=== PATIENT | female | born 1975 | race Caucasian/White ===

== ENCOUNTER 2019-02-20 02:42 | Inpatient (IN) ==
[2019-02-20] MEDS ORDERED: LR 1,000 ML ONE (11:14)
[2019-02-20] MEDS ORDERED: KEFZOL 1 GM/D5W 1 GM/50 ML IVPB ONE (11:14)
[2019-02-20] MEDS ORDERED: NEOSPORIN G.U. IRRIGANT ONE (11:28)
[2019-02-20] MEDS ORDERED: XYLOCAINE-MPF 2% ONE (11:52)
[2019-02-20] MEDS ORDERED: FENTANYL ONE (11:52)
[2019-02-20] MEDS ORDERED: DIPRIVAN 1% ONE (11:52)
[2019-02-20] MEDS ORDERED: VALIUM ONE (12:15)
[2019-02-20] MEDS ORDERED: ZOFRAN ONE (12:35)
[2019-02-20] MEDS ORDERED: DECADRON ONE (12:35)
[2019-02-20] MEDS: DILAUDID ONE ×2 (13:46→13:49)
[2019-02-20] MEDS: LR 1,000 ML ONE ×2 (14:19→15:14)
[2019-02-20] MEDS ORDERED: PERCOCET-5 PO PRN (14:30)
[2019-02-20] MEDS ORDERED: VANCOMYCIN IV PER PHARMACY MISC SCH (14:30)
[2019-02-20] MEDS: PERCOCET-5 PO PRN ×2 (15:11→22:32)
[2019-02-20] MEDS: LR 1,000 ML IV SCH (16:38)
[2019-02-20] MEDS ORDERED: VANCOMYCIN 1,600 MG in NS 250 ML IV ONE (20:00)
--- NOTE | 2019-02-20 20:40 | OPERATIVE NOTE ---
PROCEDURE DATE: 02/20/2019 PREOPERATIVE DIAGNOSIS: Left ankle infected hardware. POSTOPERATIVE DIAGNOSIS: Left ankle infected hardware. PROCEDURE: Removal of hardware of left ankle, and irrigation and debridement of wound. ANESTHESIA: General. SURGEON: Chris López MD. ATHLETIC TRAINER: MISTY Saucedo. COMPLICATIONS: None. BLOOD LOSS: Minimal. TOURNIQUET TIME: Approximately 1 hour. DRAIN: [place] x1. SPECIMEN/CULTURE: Cultures to Microbiology and Pathology with the tissue. DESCRIPTION OF PROCEDURE: Patient was brought to the operative suite and placed in a supine position. After satisfactory administration of general anesthesia, a well- padded tourniquet was placed on the left proximal thigh, and left lower extremity was prepped and draped in usual sterile fashion. Leg was exsanguinated, tourniquet insufflated to 350 torr. A longitudinal incision was made overlying the lateral malleolus, dissected sharply through the skin down to the plate. Cultures were obtained. Then, the screws were removed from the plate and the plate was removed. The interfragmentary screw was removed as well. The screw holes were curetted. The scar tissue was debrided with a rongeur and sharply. We also removed the thickened rind of tissue over the plate. Once this was accomplished, the wound and bone of the lateral malleolus was copiously irrigated with normal saline containing G.U. irrigant and Vashe irrigation. A [place] drain was then placed. The wound was closed with interrupted 3-0 nylon and a sterile dressing was applied. The patient tolerated the procedure without complication. At the end the procedure, all counts were correct. The patient was transferred to the recovery room in stable condition. cc: Chris López MD [facility]
[2019-02-20] MEDS: PERIDEX MT SCH (20:55)
[2019-02-20] MEDS: MORPHINE IV PRN (21:20)
[2019-02-21] MEDS: PERCOCET-5 PO PRN ×4 (02:49→18:39)
[2019-02-21] MEDS: MORPHINE IV PRN ×3 (06:53→16:41)
[2019-02-21] MEDS: VANCOMYCIN 1,200 MG in NS 250 ML IV SCH ×2 (08:04→21:06)
[2019-02-21] MEDS: NICODERM PATCH TD SCH (10:28)
--- NOTE | 2019-02-21 12:25 | ORTHOPAEDICS PROGRESS NOTE ---
DATE: 02/21/2019 SUBJECTIVE: Patient is a 43-year-old female who is 1 day status post removal of hardware left ankle and irrigation and debridement. She is currently resting comfortably. PHYSICAL EXAMINATION: The patient's dressing is intact. She has good capillary refill distally. She is grossly neurovascularly intact. Her cultures are pending. IMPRESSION: Postoperative day #1 status post removal of hardware left ankle and irrigation and debridement of wound. PLAN: At this point, will await the culture results. Dr. Oconnor has been consulted for further evaluation and treatment recommendations. She will continue her current IV antibiotics. cc: MD Chris Garcia MD
--- NOTE | 2019-02-21 15:19 | ORTHOPAEDICS PROGRESS NOTE ---
DATE: 02/21/2019 SUBJECTIVE: Julia Holt is a 43-year-old female who is postoperative day 1 from irrigation debridement and hardware removal of left ankle. She has no complaints. OBJECTIVE: She is a well-developed, well-nourished female. She is alert, oriented, and cooperative with examination. Her dressing is intact. Her Gram stain was negative except for 2+ white cells. Her cultures are still pending. ASSESSMENT: Stable left ankle line. PLAN: We will plan on changing the dressing tomorrow. She will go home once we have a definitive diagnosis on the cultures. cc: Chris López MD
[2019-02-21] MEDS: PERIDEX MT SCH ×2 (16:47→21:06)
[2019-02-21] MEDS: BENADRYL PO PRN (17:31)
[2019-02-22] MEDS: BENADRYL PO PRN ×2 (02:04→18:18)
[2019-02-22] MEDS: PERCOCET-5 PO PRN ×4 (04:38→18:19)
[2019-02-22] MEDS: VANCOMYCIN 1,200 MG in NS 250 ML IV SCH (08:11)
[2019-02-22] MEDS: NICODERM PATCH TD SCH (08:12)
[2019-02-22] MEDS: PERIDEX MT SCH ×2 (08:12→20:50)
[2019-02-22] MEDS: MORPHINE IV PRN ×3 (08:29→22:19)
--- NOTE | 2019-02-22 08:43 | ORTHOPAEDICS PROGRESS NOTE ---
DATE: 02/22/2019 SUBJECTIVE: Julia Holt is a 43-year-old female who is postoperative day 2 from I and D and hardware removal of her left ankle. She has no new complaints. OBJECTIVE: She is a well-developed, well-nourished female. She is alert and cooperative with the exam. We have changed her dressing. Her wound is clean, dry, and intact. There is minimal drainage. We have removed the [place] drain, and placed a sterile dressing. MICROBIOLOGY: Her cultures thus far have been negative, but they are still preliminary. ASSESSMENT: Left ankle hardware infection. PLAN: I think we are going to treat this as osteomyelitis. I have discussed her with Dr. Oconnor. Will plan on her getting a PICC line and going home with IV antibiotics tomorrow, depending upon the culture results. She will likely need 6 or 8 weeks of IV antibiotics. She can follow up with me in 1 week for suture removal. cc: Chris López MD
--- NOTE | 2019-02-22 10:03 | INFECTIOUS DISEASE CONSULT REP ---
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 RECOMMENDATIONS: I agree with the decision to treat the patient with vancomycin pending when I can see the actual culture that grew Staph from the patient. I put a consult in for the patient to have a PICC placed tomorrow, and also I put in a consult for Social Service to see the patient tomorrow and arrange for home IV antibiotics. I plan to treat the patient for 6 weeks with vancomycin for her infection. This is assuming that the organism isolated from the foot was Staph, but it was not methicillin-resistant Staph aureus. If it were methicillin-resistant Staph aureus, then I would treat her for a total of 8 weeks with IV antibiotic. Some side effects of vancomycin including rash, renal toxicity, and ototoxicity explained to patient who agrees with treatment. DISCUSSION: The patient, in 2015, fractured her left ankle. She had metal placed on the ankle. She had an eschar on the ankle that lasted for approximately 1 year, and then it cleared. Since June of this year, she has had swelling, erythema, and drainage of a yellow fluid from her left ankle. The patient told me that she had a culture done in [place], and it grew Staph. The patient has had a creatinine during this hospitalization of 0.5, and her test was negative. Cultures from the ankle are pending, but thus far, there has been no growth, and on Gram stain, white blood cells were seen, but no bacteria. PAST MEDICAL HISTORY/REVIEW OF SYSTEMS: Eyes and Ears: The patient has decreased vision, but her hearing is good. Neck: No stiffness. Respiratory: No cough or shortness of breath. Cardiac: No chest pain or palpitations. GI: No nausea, vomiting, or diarrhea. : No dysuria or flank pain. Bones/Joints/Muscles: See present illness. Neurologic: No seizures. No loss of motor or sensory function. Integument: No rashes. MEDICAL RECORDS RECEPTIONIST HISTORY: She is a 2, para 2, AB 0. She delivered one of her children by section. The patient continues to have her menstrual periods. Her last one was approximately a week ago. As mentioned above, the patient's test done here is negative. PREVIOUS HOSPITALIZATIONS AND OPERATIONS: The patient once was admitted for pneumonia. She has had labor and delivery, and also a section. MEDICAL DISEASES: Negative for diabetes mellitus and hypertension. INFECTIOUS DISEASE HISTORY: Positive for pneumonia and urinary tract infection. FAMILY HISTORY: This is unknown by the patient. She was adopted as a child in [place]. SOCIAL HISTORY: [place] She lives with her boyfriend. She smokes cigarettes and drinks alcoholic beverages. She does not abuse drugs. She has cat and dog for pets. The patient does not have a job. ALLERGIES: She is allergic to tramadol. MEDICATIONS: At home, the only medicine she was taking was Keflex. PHYSICAL EXAMINATION: Vital Signs: Temperature is 98.2 degrees, pulse 69, respirations 16, blood pressure is 155/88. The patient weighs 119 pounds. General: This is a healthy-appearing, young female. She is in no acute distress. HEENT: She can hear my spoken words and see near objects. There is no drainage coming from her nose or ears. She does not have any white patches on her tongue. Neck: No meningismus. Lungs: Clear to auscultation. Cardiovascular: Heart rate is regular. Abdomen: Soft and nontender. Extremities: The dressing was removed from the patient's left ankle. There is some erythema still remaining. However, it is much less than the picture of her ankle showed. Also, there is less swelling of the ankle. Neurologic: The patient is alert. She can move her extremities. There is no tremor. Her memory as regarding her medical history is intact. Integument: There is a small area of erythema on the right arm. It is not swollen or tender. Thank you for the consult. cc: MD Chris Schutle MD [facility]TDD
[2019-02-22] MEDS: VANCOMYCIN 1,500 MG in NS 250 ML IV SCH (22:11)
[2019-02-23] MEDS: LR 1,000 ML IV SCH ×3 (01:39→14:50)
[2019-02-23] MEDS: MORPHINE IV PRN ×4 (01:39→19:30)
[2019-02-23] MEDS: BENADRYL PO PRN ×3 (01:40→14:59)
[2019-02-23 06:51] LABS: BASO# 0.03 X1000 (0.0-0.2); BASO% 0.4 % (0.0-0.8); EOS# 0.14 X1000 (0.0-0.7); HEMATOCRIT 41.5 % (37.0-47.0); HEMOGLOBIN 13.4 g/dL (12.0-16.0); LYMPH# 2.27 X1000 (1.2-3.4); LYMPH% 32.5 % (20.5-51.1); MCH 31.2 PG (27-31); MCHC 32.3 g/dL (33-37); MCV 96.5 FL (81-99); MONO# 0.53 X1000 (0.11-0.59); MONO% 7.6 % (1.7-9.3); MPV 9.3 FL (7.4-10.4); NEUT# 4.01 X1000 (1.4-6.5); NEUT% 57.5 % (42.2-75.2); PLT 295 X1000 (130-400); RDW 13.2 % (11.5-14.5); WBC 6.98 X1000 (4.8-10.8)
[2019-02-23] MEDS: PERCOCET-5 PO PRN (06:53)
[2019-02-23 06:58] LABS: INR 0.87
[2019-02-23] MEDS ORDERED: NS 250 ML ONE (08:49)
[2019-02-23] MEDS: VANCOMYCIN 1,500 MG in NS 250 ML IV SCH ×2 (09:54→17:32)
[2019-02-23] MEDS: PERIDEX MT SCH (09:54)
[2019-02-23] MEDS: NICODERM PATCH TD SCH (09:54)
[2019-02-23] MEDS ORDERED: AYR NASAL SPRAY NAS PRN (10:05)
[2019-02-23] MEDS ORDERED: ATIVAN PO ONE (11:09)
--- NOTE | 2019-02-23 11:37 | INFECTIOUS DISEASE PROGRESS NO ---
DATE: 02/23/2019 The patient had a culture taken from her ankle on 02/15/2019. The culture grew out Staphylococcus epidermidis, and the organism was susceptible to only 2 antibiotics, one was vancomycin, and the other one was tetracycline. cc: MD Chris Schulte MD
--- NOTE | 2019-02-23 16:20 | INFECTIOUS DISEASE PROGRESS NO ---
DATE: 02/23/2019 SUBJECTIVE: The patient had all of her metal removed except for [address] López told me that the screws were in an area that was not infected. My plan is treat with vancomycin for 6 weeks which will cover the Staph epi and Finegoldia magna which were isolated from the patient's ankle. cc: MD Chris Schulte MD MTDLen
[2019-02-23 17:27] VITALS: BP 191/98
--- NOTE | 2019-02-23 21:10 | INFECTIOUS DISEASE PROGRESS NO ---
DATE: 02/23/2019 The patient grew earlier, from her infected ankle, Staphylococcus epidermidis and most recently, when she had surgery on her ankle with removal of the hardware, an anaerobic organism by the name of Carmine richardson was isolated. The patient is going home on vancomycin IV, and vancomycin will provide excellent coverage of both of these organisms. cc: MD Chris Schulte MD [facility]
--- NOTE | 2019-02-24 11:45 | DISCHARGE SUMMARY ---
ADMISSION DATE: 02/20/2019 DISCHARGE DATE: 02/23/2019 DISCHARGE DIAGNOSES: Left ankle infected hardware status post removal of hardware and irrigation, debridement. Previous cultures obtained showed strep epi. Her anaerobic cultures grew out Finegoldia Magna. DISCHARGE MEDICATIONS: See the discharge med list. IV antibiotics per Dr. Oconnor. DISPOSITION: Patient discharged home with home health. IV antibiotics and a PICC line. She is instructed to return for any signs or symptoms of infection or deep venous thrombosis. She is instructed in wound care. HOSPITAL COURSE: On the day of admission, patient underwent removal of hardware and irrigation and debridement. Her postoperative course was unremarkable. At discharge, she is afebrile tolerating a regular diet ambulating well with physical therapy. Her wound is clean, dry, and intact without sign of infection. The previous cultures taken of her ankle 02/15/2019 grew out Strep epidermidis, and is showing susceptible to vancomycin and tetracycline. Therefore, we kept her on vancomycin. Her anaerobic grew out Finegoldia Magna. Dr. Oconnor is going to address this separately. She is discharged home in stable condition with instructions to follow up as described above. cc: Chris López MD [facility]
== END 2019-02-23 19:38 | disposition home or self-care (01) | DRG 908 ==
LOC: SURHOLD 02:42 → 4N 14:13
PROVIDERS: ADMIT Orthopaedic Surgery; ATTEND Orthopaedic Surgery